=== PATIENT | female | born 1955 | race Caucasian/White ===

== ENCOUNTER 2025-01-22 12:32 | Outpatient (CLI) | payer MEDICARE, OTHER, SELFPAY ==
--- NOTE | ~2025-01-22 | US_ITS ---
LEFT LOWER EXTREMITY VENOUS ULTRASOUND Ordering provider: Lissa Dwyer MD History: . ACTIVIATED PROTEIN C RESISTANCE;LEFT LEG PAIN . Comparison: None. FINDINGS: --COMMON FEMORAL: Patent and free of thrombus. Normal compressibility, phasic flow and augmentation. --PROXIMAL SUPERFICIAL FEMORAL: Patent and free of thrombus. Normal compressibility, phasic flow and augmentation. --DISTAL SUPERFICIAL FEMORAL: Patent and free of thrombus. Normal compressibility, phasic flow and au gmentation. --POPLITEAL: Patent and free of thrombus. Normal compressibility, phasic flow and augmentation. --POSTERIOR TIBIAL: Patent and free of thrombus. Normal compressibility, phasic flow and augmentation . Thrombosis in the lesser saphenous vein is noted. IMPRESSION: Thrombosis in the lesser saphenous vein. No deep vein thrombosis. Reviewed, dictated and finalized at location A.
--- OUTSIDE RECORDS SUMMARY | 2025-01-22 12:42 | XMS_ITS | Clinical Summary ---
Author Organization [facility] Address [address] [place] [address] Care Team Providers Care Hammer Smith Name Role Phone Steve Vasques MD Primary Care Provider [phone] Allergies Active Allergy Reactions Criticality Noted Date Comments Hydrocodone-Acetaminophen Hives,Rash High 10/26/2019 Reaction: Rash, Hives, Medications GLUCOSAMINE HCL/CHONDRO WATT A (GLUCOSAMINE-CHO NDROITIN PO) Take 1 Tab by mouth daily. Active aspirin (LOLLY) 81 mg Oral Tab Take 81 mg by mouth daily. Active omega-3 fatty acids-fish oil 300-1,000 mg Capsule Take by mouth daily. Active ascorbic acid, vitamin C, (VITAMIN C) 500 mg tablet Take 500 mg by mouth daily. Active cholecalciferol, Vitamin D3, (VITAMIN D3) 25 mcg (1,000 unit) Capsule Take by mouth daily. Active Active Problems Problem Noted Date Diagnosed Date Thickened endometrium 08/14/2022 Other and unspecified ovarian cyst 10/10/2012 Arthralgia of shoulder 05/12/2011 Menopause 02/04/2011 FH: lymphoma 08/08/2009 Overview (08/08/2009): Mother 59 y/o Papanicolaou smear of cervix with low grade squamous intraepithelial lesion (LGSIL) 08/08/2009 Fibroid uterus 08/07/2009 Overview (08/07/2009): 10 weeks DVT (deep venous thrombosis) 08/07/2009 Knee pain 03/04/2009 Blood clot in the legs Overview (09/26/2009): Leg swelling. 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 Updating IMO/ICD9 Code and Description Resolved Problems Problem Noted Date Diagnosed Date Resolved Date Perimenopausal 08/07/2009 02/04/2011 Family History Medical History Relation Name Comments DVT Father Ray Other Father Ray blood clot issu es Unknown Maternal Grandfather Unknown Maternal Grandmother Cancer Mother Leah Lymphoma Healthy Other H-Roverto Unknown Paternal Grandfather DVT Paternal Grandmother Kathia Unknown Paternal Grandmother Kathia Other Sister Chery blood clot issu e Stroke Sister Chery Relation Name Status Comments Father Ray Maternal Grandfather Maternal Grandmother Mother Leah Other H-Roverto Alive Paternal Grandfather Paternal Grandmother Kathia Sister Chery Alive Social History Tobacco Use Types Packs/Day Years Used Date Smoking Tobacco: Never Smokeless Tobacco: Never Tobacco Cessation:Counseling Given: Not Answered Alcohol Use Standard Drinks/Week Comments Yes 3 (1 standard drink = 0.6 oz pur e alcohol) Comments No Sex and Gender Information Value Date Recorded Sex Assigned at Not on file Legal Sex Female 5:39 AM INDUCTION COORDINATION ENGINEER Gender Identity Not on file Sexual Orientation Not on file Occupation Industry Job Start Date Job End Date Not on file Not on file Not on file Not on file Last Filed Vital Signs Vital Sign Reading Time Taken Comments Blood Pressure 116/57 08/14/2022 11:38 AM INDUCTION COORDINATION ENGINEER Pulse 61 08/14/2022 11:38 AM INDUCTION COORDINATION ENGINEER Temperature 36.2 C (97.1 F) 08/14/2022 11:23 AM INDUCTION COORDINATION ENGINEER Respiratory Rate 16 08/14/2022 11:38 AM INDUCTION COORDINATION ENGINEER Oxygen Saturation 100% 08/14/2022 11:38 AM INDUCTION COORDINATION ENGINEER Inhaled Oxygen Concentration - - Weight 67.6 kg (149 lb) 08/25/2023 10:56 AM INDUCTION COORDINATION ENGINEER Height 160 cm (5' 3 ) 08/25/2023 10:56 AM INDUCTION COORDINATION ENGINEER Body Mass Index 26.39 08/25/2023 10:56 AM INDUCTION COORDINATION ENGINEER Plan of Treatment Health Maintenance Due Date Last Done Comments DTAP/TDAP/TD VACCINES (1 - Tdap) 1976 FIT-DNA Q 3 years 2002 FIT/FOBT Q 1 year 2002 Flex Sig/CT Colonography Q 5 years 2002 PNEUMOCOCCAL VACCINE 50+ YEA RS (1 of 1 - PCV) 2007 ZOSTER VACCINE (1 of 2) 2007 BREAST CANCER SCREENING 10/07/2023 10/07/19 23, 10/07/2022, 10/07/2022, Additional history exists INFLUENZA VACCINE (#1) 2024 OSTEOPOROSIS SCREENING 03/15/2026 4, 05/05/2021, 05/05/2021, Additional history exists COLORECTAL SCREENING 04/29/2027 04/29/2017, 09/17/2011 (Postponed) Colorectal Cancer Screening 04/29/2027 RSV VACCINE (60+ or ) (1 - 1-dose 75+ series) 2032 Procedures Procedure Name Priority Date/Time Associated Diagnosis Comments MAMMO 3D YOKO SCREEN BILAT W OR WO CAD Routine 07/19/2019 XR DEXA BONE DENSITY AXIAL 1 OR MORE SITES Routine 10/03/2013 Special screening for osteoporosis from Last 3 Months or Most Recently Relevant to Health Maintenance Results * MAMMO SCRN BILAT 3D YOKO W OR WO CAD (07/19/2019) Anatomical Region Laterality Modality Breast Bilateral Mammography Jimmy An MD MAMMO ORDERABLES Edited Resu lt - Final * XR DEXA BONE DENSITY AXIAL 1 OR MORE SITES (10/03/2013) Anatomical Region Laterality Modality Other Jimmy An MD DIAGNOSTIC IMAGING ORDERABLE S Final Result from Last 3 Months or Most Recently Relevant to Health Maintenance Insurance MEDICARE PART A AND [place] [facility] [place] [address] Advance Directives For more information, please contact: [phone] * Full Code (Latest Code Status on File) Date Activated Date Inactivated Comments 08/14/2022 10:38 AM 08/14/2022 2:48 PM * Full Code Date Activated Date Inactivated Comments 08/14/2022 9:08 AM 08/14/2022 10:37 AM * Full Code Date Activated Date Inactivated Comments 08/14/2022 9:08 AM 08/14/2022 9:08 AM Care Teams Hammer Smith Relationship Specialty Start Date End Date Steve Vasques MD [address] [place] [phone] PCP - General Family Practice 07/17/22
--- OUTSIDE RECORDS SUMMARY | 2025-01-22 12:42 | XMS_ITS | Clinical Summary ---
Author Organization [facility] Address [address] [place] [address] Care Team Providers Care Public Relations Player Name Role Phone Lissa Dwyer MD Primary Care Provider Family History Medical History Relation Comments Breast Cancer Neg Hx Social History Tobacco Use Types Packs/Day Years Used Date Smoking Tobacco: Never Assessed Comments Unknown Sex and Gender Information Value Date Recorded Sex Assigned at Not on file Legal Sex Female 7:49 PM CDT Gender Identity Not on file Sexual Orientation Not on file Plan of Treatment Health Maintenance Due Date Last Done Comments Colorectal Cancer Screening Colonoscopy (10 Years) 1955 Hepatitis C 1975 DTaP, Tdap and Td Vaccines (1 - Tdap) 1976 Pneumococcal Vaccine: 50+ Years (1 of 1 - PCV) 2007 Annual Medicare Wellness Visit 2022 COVID-19 Vaccine ( - season) 2024 Mammogram Screening 03/15/2026 03/15/2024, 10/07/2022, 10/02/2020, Additional history exists RSV Immunization or 60+ Years (1 - 1-dose 75+ series) 2032 Zoster Vaccines Completed 06/10/2020, 04/05/2020 Dexa Scan (General) Completed 03/15/2024, 05/05/2021, 05/05/2021, Additional history exists Meningococcal B Vaccine Aged Out No l onger eligible based on patient's age to complete this topic Meningococcal Vaccine Aged Out No kristie domiink eligible based on patient's age to complete this topic RSV Immunizations Under 20 Months Aged Out No longer eligible based on patient's age to complete this topic Procedures Procedure Name Priority Date/Time Associated Diagnosis Comments BONE DENSITY/DEXA Routine 03/15/2024 10: 41 AM CDT Asymptomatic menopausal state MG SCREENING W YOKO COLLETTE DIGI Routine 03/15/2024 10:41 AM CDT Screening mammogram, encounter for from Last 3 Months or Most Recently Relevant to Health Maintenance Results * BONE DENSITY/DEXA (03/15/2024 10:41 AM CDT) Anatomical Region Laterality Modality Bone Bone Density 03/15/2024 1:37 PM CDT Impressions 03/15/2024 1:40 PM CDT IMPRESSION: WHO Classification: Normal. The bone marrow density is at the lower limits of normal in the right and left femur. FRAX Score: Not calculated as all T-scores are at or above -1.0. Ordered By: ROHAN VASQUES Interpreted By: Javier Cole MD, 03/15/2024 1:37 PM Narrative 03/15/2024 1:40 PM CDT Examination: Bone Density Axial Exam Date/Time: 03/15/2024 10:16 AM Reason For Exam: Postmenopausal. Comparison: None Findings: DEXA bone densitometry The bone mineral density (BMD) was determined by dual-energy x-ray absorptiometry, the results are as follows: AP Lumbar Spine L1 through L4 BMD Patient (GM/SQCM): 1.005 T-Score (Standard deviations from young adult peak bone density): -0.4 Right femoral neck: BMD Patient (GM/SQCM): 0.740 T-Score (Standard deviations from young adult peak bone density): -1.0 Total right femur: BMD Patient (GM/SQCM): 0.886 T-Score (Standard deviations from young adult peak bone density): -0.5 Procedure Note Javier Cole MD - 03/15/2024 Examination: Bone Density Axial Exam Date/Time: 03/15/2024 10:16 AM Reason For Exam: Postmenopausal. Comparison: None Findings: DEXA bone densitometry The bone mineral density (BMD) was determined bydual-energy x-ray absorptiometry, the results are as follows: AP Lumbar Spine L1 through L4 BMD Patient (GM/SQCM): 1.005 T-Score (Standard deviations from young adult peak bonedensity): -0.4 Right femoral neck: BMD Patient (GM/SQCM): 0.740 T-Score (Standard deviations from young adult peak bonedensity): -1.0 Total right femur: BMD Patient (GM/SQCM): 0.886 T-Score (Standard deviations from young adult peak bonedensity): -0.5 IMPRESSION: WHO Classification: Normal. The bone marrow density is at the lower limitsof normal in the right and left femur. FRAX Score: Not calculated as all T-scores are at or above -1.0. Ordered By: ROHAN VASQUES Interpreted By: Javier Cole MD, 03/15/2024 1:37 PM us Rohan Vasques MD DEXA Final Result * MG SCREENING W YOKO COLLETTE DIGI (03/15/2024 10:41 AM CDT) Anatomical Region Laterality Modality Breast Bilateral Mammography 03/15/2024 2:13 PM CDT Impressions 03/15/2024 2:18 PM CDT =====IMPRESSION:===== No mammographic findings suggestive of malignancy ASSESSMENT: ACR BI-RADS 2 - BENIGN FINDING(S) Recommendation: 1: Routine Screening Bilateral COMMENTS: Ordered By: ROHAN VASQUES Interpreted By: Javier Cole MD, 03/15/2024 2:13 PM Narrative 03/15/2024 2:18 PM CDT EXAMINATION: Digital bilateral screening mammogram with 3-D tomosynthesis EXAM DATE/TIME: 03/15/2024 10:15 AM REASON FOR EXAM: Screening COMPARISON: Priors including October 2022, September 2020, July 2019. TECHNIQUE: Digital screening mammography of both breasts was performed in addition to 3-D Tomosynthesis technique. This study was read with the assistance of a computer-aided detection system. TISSUE DENSITY: There are scattered areas of fibroglandular density. FINDINGS: No suspicious masses, malignant appearing calcifications, skin thickening or other abnormalities are present. No significant change from the prior exam. Rohan Vasques MD MAMMO Final Result from Last 3 Months or Most Recently Relevant to Health Maintenance Insurance [facility] [id number] Care Teams Public Relations Player Relationship Specialty Start Date End Date Lissa Dwyer MD [address] [place] [address] PCP - General FAMILY PRACTICE 05/05/21
--- OUTSIDE RECORDS SUMMARY | 2025-01-22 12:42 | XMS_ITS | Encounter Summary ---
Author Organization [employer] Address [address] [place] [address] Care Team Providers Care Webbing Tacker Name Role Phone Steve Vasques MD Primary Care Provider [phone] Encounter Details Date Type Department Care Team (Latest Contact Info) Description 07/02/2008 Outpatient Historical [facility], [address] Jimmy An MD [address] [facility] [address] [place] [address] Routine Gynecological Examination Social History Tobacco Use Types Packs/Day Years Used Date Smoking Tobacco: Never Assessed Comments Unknown Sex and Gender Information Value Date Recorded Sex Assigned at Not on file Legal Sex Female 5:39 AM AMBULATORY SERVICES REPRESENTATIVE Gender Identity Not on file Sexual Orientation Not on file documented as of this encounter Plan of Treatment Not on file documented as of this encounter Procedures Procedure Name Priority Date/Time Associated Diagnosis Comments CERV/VAG CYTOPATH, SUREPATH Routine 07/02/2008 10:28 PM CDT documented in this encounter Results * CERVICAL OR VAGINAL CYTOPATH, SUREPATH (07/02/2008 10:28 PM CDT) SOURCE Cervix, Endocervix S [facility] LAST MENSTRUAL PERIOD 9 04 13 [facility] CYTOTECHNOLOGI ST: MAB, CT(ASCP) [facility] PAP INTERP ansi Negative for intraepithelial lesion or malignancy. [facility] PREV BX: ansi Information not provided [facility] CLINICAL INFORMATION Hx of LSIL or higher Pap/Bx [facility] REPORT STATUS FINAL [facility] ADEQUACY: Satisfactory for evaluation. Endocervical/trans formation zone component present. [facility] PREV PAP: Information not provided [facility] REVIEW CYTOTECHNOLOGI ST: JWS, CT(ASCP) [facility] Comment: Lab test performed by: [employer] [facility] [employer] [place] [address] GRACIA SAINI MD Specimen from uterine cervix (specimen) 07/02/2008 10:28 PM CDT 07/02/2008 10:55 PM CDT us Jimmy An MD PATHOLOGY/CYTOLOGY ORDERABLE S Final Result INTERFACE SYSTEM Refer to clinic/hospital department [facility] CLIA# [id number] [address] [facility] [place] [address] documented in this encounter Visit Diagnoses Diagnosis Routine gynecological examination documented in this encounter Care Teams Webbing Tacker Relationship Specialty Start Date End Date Steve Vasques MD [address] [place] [address] PCP - General Family Practice 07/17/22 documented as of this encounter
== END 2025-01-22 12:33 | disposition home or self-care (01) ==
PROVIDERS: PCP Family Medicine; Visit Provider Family Medicine
DX: D68.51 Activated protein C resistance (principal); M79.605 Pain in left leg; I82.812 Embolism and thrombosis of superficial veins of left lower extremity
CPT/HCPCS: 93971

== ENCOUNTER 2025-07-16 13:13 | Outpatient (CLI) | payer MEDICARE, OTHER, SELFPAY ==
--- NOTE | ~2025-07-16 | CT_ITS ---
EXAM: CT abdomen pelvis with contrast INDICATION: Lower abdominal pain COMPARISONS: None. PROCEDURE: 100 mL of Isovue 300 was injected IV. Enteric contrast given. Dose reduction technique(s) used. FINDINGS: Lower chest: Lung bases are clear. Body wall: No abnormality demonstrated. ABDOMEN: Liver: Normal size and homogeneous parenchyma. Gallbladder: No calcified gallstones. No bile duct dilatation. Spleen: Normal. Adrenals: Normal. Pancreas: No mass or adjacent stranding. Normal caliber duct. Kidneys: No calculus, mass or hydronephrosis. Aorta: Normal caliber. IVC: Normal. Retroperitoneum: No adenopathy. Stomach and visualized esophagus: No abnormality. PELVIS: Reproductive Organs: No pelvic mass. Bladder: No nodule or calculus. Colon: No focal wall thickening or paracolic fat stranding. Small Bowel: Some of the small bowel loops are inseparable from the uterus. There is what appears to be bowel wall thickening to the left of midline in some of the loops. There are scattered diverticula. There is inflammatory change in the fat about a loop of sigmoid colon. Appendix: Normal. Mesentery: No adenopathy. Normal splanchnic veins. Peritoneum: No free fluid or free air. Bones: No destructive lesion. IMPRESSION: The findings are consistent with diverticulitis without evidence of perforation or abscess formation. Reviewed, dictated and finalized at location A. ENSING AUDIOLOGIST
--- OUTSIDE RECORDS SUMMARY | 2025-07-16 13:30 | XMS_ITS | Clinical Summary ---
Author Organization [facility] Address [address] [place] [address] Care Team Providers Care Locomotive Pipe Fitter Name Role Phone Steve Vasques MD Primary Care Provider Allergies Active Allergy Reactions Criticality Noted Date [...] on file Legal Sex Female 5:39 AM HANDLE LATHE OPERATOR Gender Identity Not on file Sexual Orientation Not on file Occupation Industry Job Start Date Job End Date Not on file Not on file Not on file Not on file Last Filed Vital Signs Vital Sign Reading Time Taken Comments Blood Pressure 116/57 08/14/2022 11:38 AM HANDLE LATHE OPERATOR Pulse 61 08/14/2022 11:38 AM HANDLE LATHE OPERATOR Temperature 36.2 C (97.1 F) 08/14/2022 11:23 AM HANDLE LATHE OPERATOR Respiratory Rate 16 08/14/2022 11:38 AM HANDLE LATHE OPERATOR Oxygen Saturation 100% 08/14/2022 11:38 AM HANDLE LATHE OPERATOR Inhaled Oxygen Concentration - - Weight 67.6 kg (149 lb) 08/25/2023 10:56 AM HANDLE LATHE OPERATOR Height 160 cm (5' 3) 08/25/2023 10:56 AM HANDLE LATHE OPERATOR Body Mass Index 26.39 08/25/2023 10:56 AM HANDLE LATHE OPERATOR Plan of Treatment Upcoming Encounters Date Type Department Care Team (Late st Contact Info) Description 08/15/2025 9:30 AM HANDLE LATHE OPERATOR Ancillary Procedure [facility] [address] [address] 08/15/2025 10:15 AM HANDLE LATHE OPERATOR Office Visit [facility] [address] [address] Jimmy An MD [address] [facility] [address] [address] Health Maintenance Due Date Last Done Comments DTAP/TDAP/TD VACCINES (1 - Tdap) 1976 FIT-DNA Q 3 years 2002 FIT/FOBT Q 1 year 2002 Flex Sig/CT Colonography Q 5 years 2002 PNEUMOCOCCAL VACCINE 50+ YEA RS (1 of 1 - PCV) 2007 ZOSTER VACCINE (1 of 2) 2007 BREAST CANCER SCREENING 10/07/2023 10/07/19 23, 10/07/2022, 10/07/2022, Additional history exists INFLUENZA VACCINE (#1) 2025 OSTEOPOROSIS SCREENING 03/15/2026 , 05/05/2021, 05/05/2021, Additional history exists COLORECTAL SCREENING [...] Anatomical Region Laterality Modality Breast Bilateral Mammography us Jimmy An MD MAMMO ORDERABLES Edited Resu lt - Final * XR DEXA BONE DENSITY AXIAL 1 OR MORE SITES (10/03/2013) Anatomical Region Laterality Modality Other us Jimmy An MD DIAGNOSTIC IMAGING ORDERABLE S Final Result from Last 3 Months or Most Recently Relevant to Health Maintenance Insurance MEDICARE PART A AND B [facility] Advance Directives For more information, please contact: [phone] * Full Code (Latest Code Status on File) Date Activated Date Inactivated Comments 08/14/2022 10:38 AM 08/14/2022 2:48 PM * Full Code Date Activated Date Inactivated Comments 08/14/2022 9:08 AM 08/14/2022 10:37 AM * Full Code Date Activated Date Inactivated Comments 08/14/2022 9:08 AM 08/14/2022 9:08 AM Care Teams Locomotive Pipe Fitter Relationship Specialty Start Date End Date Steve Vasques MD [address] [place] [address] PCP - General Family Practice 07/17/22
--- OUTSIDE RECORDS SUMMARY | 2025-07-16 13:30 | XMS_ITS | Encounter Summary ---
Author Organization [facility] Address [address] [place] [address] Care Team Providers Care Nitrating Acid Mixer Name Role Phone Steve Vasques MD Primary Care Provider [phone] Encounter Details Date Type Department Care Team (Latest Contact Info) Description 07/02/2008 Outpatient Historical [facility], [address] Jimmy An MD [address] [address] Routine Gynecological Examination Social History Tobacco Use Types Packs/Day Years Used Date Smoking Tobacco: Never Assessed Comments Unknown Sex and Gender Information Value Date Recorded Sex Assigned at Not on file Legal Sex Female 5:39 AM FERMENTER HELPER Gender Identity Not on file Sexual Orientation Not on file documented as of this encounter Plan of Treatment Upcoming Encounters Date Type Department Care Team (Late st Contact Info) Description 08/15/2025 9:30 AM FERMENTER HELPER Ancillary Procedure [facility] [address] [address] 08/15/2025 10:15 AM FERMENTER HELPER Office Visit [facility] [address] [address] Jimmy An MD [address] [address] documented as of this encounter Procedures Procedure Name Priority Date/Time Associated Diagnosis Comments CERV/VAG CYTOPATH, SUREPATH Routine 07/02/2008 10:28 PM CDT documented in this encounter Results * CERVICAL OR VAGINAL CYTOPATH, SUREPATH (07/02/2008 10:28 PM CDT) SOURCE Cervix, Endocervix S [facility] LAST MENSTRUAL PERIOD 9 8 08 [facility] CYTOTECHNOLOGI ST: MAB, CT(ASCP) [facility] PAP INTERP ansi Negative for intraepithelial lesion or malignancy. [facility] PREV BX: ansi Information not provided [facility] CLINICAL INFORMATION Hx of LSIL or higher Pap/Bx [facility] REPORT STATUS FINAL [facility] ADEQUACY: Satisfactory for evaluation. Endocervical/trans formation zone component present. [facility] PREV PAP: Information not provided [facility] REVIEW CYTOTECHNOLOGI ST: JWS, CT(ASCP) [facility] Comment: Lab test performed by: [employer] [address] [address] GRACIA SAINI MD Specimen from uterine cervix (specimen) 07/02/2008 10:28 PM CDT 07/02/2008 10:55 PM CDT us Jimmy An MD PATHOLOGY/CYTOLOGY ORDERABLE S Final Result INTERFACE SYSTEM Refer to clinic/hospital department [facility] CLIA# [id number] [address] [place] [id number] documented in this encounter Visit Diagnoses Diagnosis Routine gynecological examination documented in this encounter Care Teams Nitrating Acid Mixer Relationship Specialty Start Date End Date Steve Vasques MD [address] [place] [address] PCP - General Family Practice 07/17/22 documented as of this encounter
[2025-07-16 13:33] LABS: Estimated Glomerular Filt Rate 55
== END 2025-07-16 13:14 | disposition home or self-care (01) ==
PROVIDERS: PCP Family Medicine; Visit Provider Nurse Practitioner Family
DX: R10.30 Lower abdominal pain, unspecified (principal); R14.0 Abdominal distension (gaseous); R19.4 Change in bowel habit; R14.3 Flatulence
CPT/HCPCS: 74177; Q9967

== ENCOUNTER 2025-08-21 01:47 | Day surgery (SDC) | payer MEDICARE, OTHER, SELFPAY ==
--- OUTSIDE RECORDS SUMMARY | 2024-06-23 02:45 | XMS_ITS ---
Author Organization [facility] dicine Address [address] [place] [address] Care Team Providers Care Box Covering Machine Operator Name Role Phone Dr. Lissa Dwyer Primary Care Provider [phone] Pasha Solis Unavailable [phone] Results Component Value Reference Range Notes AUDIT-C Reviewed date:06/23/2024 12:00:00 AM Interpretation: Performing Lab: Notes/Report: How many standard drinks con taining alcohol do you have on a typical day? 1 or 2 drinks How often do you have 6 or m ore drinks on 1 occasion Never How often do you have a drin k containing alcohol Monthly or less Total Score 1 Patient Health Questionnaire (PHQ9) Reviewed date:06/23/2024 12:00:00 AM Interpretation: Performing Lab: Notes/Report: Feeling bad about yourself o r that you are a failure or have let yourself or your family down 0 Feeling down, depressed, or hopeless 0 Feeling tired or having little energy 0 If you checked off any probl ems, how difficult Not difficult at all have these problems made it for you to do your work, take care of things at home, or get along with other people? 0 Little interest or pleasure in doing things 0 Moving or speaking so slowly that other people could have noticed or the opposite being so figety or restless that you have been moving around a lot more than usual 0 Poor appetite or overeating 0 Thoughts that you would be b rusty off , or of hurting yourself 0 Trouble concentrating on thi ngs, such as reading the newspaper or watching television 0 Trouble falling or staying a sleep, or sleeping too much 0 REASON FOR VISIT Traditional AWV- mailed paperwork 10-9m, wants flu shot as well Immunizations Vaccine Route Administration Date Status Comme nts Influenza, high dose seasonal IM Intramuscular 06/23/2024 Administered ,sourcename : N ew immunization record ,immstatus : Complete Tdap IM Intramuscular 06/23/2024 Administered ,sourc ename : New immunization record ,immstatus : Complete Vital Signs Temperature 96.9 degrees Fahrenheit 06/23/20 24 Blood pressure systolic 122 mm Hg 06/23/20 24 Blood pressure diastolic 78 mm Hg 024 Heart Rate 70 /min 06/23/2024 Height 63.00 in 06/23/2024 Weight 153.31 lbs 06/23/2024 BMI 27.15 kg/m2 06/23/2024 Oximetry 98 % 06/23/2024 Height-cm 160.02 cm 06/23/2024 Weight-kg 69.54 kg 06/23/2024 Encounters Encounter Location Date Provider Diagnosis [address] [address] 06/23/2024 Pasha Solis 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 ; Encounter for screening for malignant neoplasm of colon Z12.11 ; Pure hypercholesterolemia , unspecified E78.00 ; Body mass index (BMI) 27.0-27.9, adult Z68.27 and Encounter for general adult medical examination without abnormal findings Z00.00 Assessments Encounter Date Diagnosis (ICD Code) Assessment Notes Treatment Notes Treatment Clinical Notes Section Notes 06/23/2024 Activated protein C resistance (ICD-10 - D68.51) 06/23/2024 Encounter for screening for malignant neoplasm of colon (ICD-10 - Z12.11) 06/23/2024 Pure hypercholesterol emia, unspecified (ICD-10 - E78.00) 06/23/2024 Body mass index (BMI) 27.0-27.9, adult (ICD-10 - Z68.27) 06/23/2024 Encounter for general adult medical examination without abnormal findings (ICD-10 - Z00.00) Plan Of Treatment No Information Progress Notes * Rachel MCGUIREDOB:1 (70 yo F)Acc No.[id number]:06/23/2024 Progress Note Patient: R Rachel Colon Provider: MARY JANE Henning :1955 A ge:69 Y S ex:Female Date:06/23/2024 Phone: Address:[facility] , [place], [id number] Pcp:Dr. Lissa Dwyer Subjective: * Chief Complaints: * T raditional AWV- mailed paperwork 10-9m, wants flu shot as well Objective: * Vitals: B P: 122/78 mm Hg, HR: 70 /min, Temp: 96.9 F, Oxygen sat %: 98 %, Ht: 63.00 in, Wt: 153.31 lbs, Wt-k.54 kg, Ht-cm: 160.02 cm, BMI: 27.15 Index. Past Vitals:* 09/11/2022 BP: 134/82 mm Hg, HR: 68 /mi n, Oxygen sat %: 97 %, Wt: 148.50 lbs, Wt-k.36 kg Assessment: * Assessment: 1. 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 E ncounter for general adult medical examination without abnormal findings - Z00.00 S pecify :Src Diagnosis Name: Encounter for annual wellness visit (AWV) in Medicare patient 3 . E ncounter for screening for malignant neoplasm of colon - Z12.11 ? 4 . P ure hypercholesterolemia, unspecified - E78.00 S pecify :Src Diagnosis Name: Elevated LDL cholesterol level 5 . B wolf mass index (BMI) 27.0-27.9, adult - Z68.27 Plan: * Immunizations: Influenza, high dose seasonal : 0.5 (Route: Intramuscular) on Left Arm Tdap : 0.5 (Route: Intramuscular) on Left Arm * Labs: * L ab: Patient Health Questionnaire (PHQ9) Value Reference Range F eeling bad about yourself or that you are a failure or have let yourself or your family down 0 * F eeling down, depressed, or hopeless 0 * F eeling tired or having little energy 0 * I f you checked off any problems, how difficult Not difficult at all have these problems made it for you to do your work, take care of things at home, or get along with other people? 0 * L ittle interest or pleasure in doing things 0 * M oving or speaking so slowly that other people could have noticed or the opposite being so figety or restless that you have been moving around a lot more than usual 0 * P oor appetite or overeating 0 * T houghts that you would be better off , or of hurting yourself 0 * T rouble concentrating on things, such as reading the newspaper or watching television 0 * T rouble falling or staying asleep, or sleeping too much 0 ?Lab: AUDIT-C* Value Reference Range H ow many standard drinks containing alcohol do you have on a typical day? 1 or 2 drinks * H ow often do you have 6 or more drinks on 1 occasion Never * H ow often do you have a drink containing alcohol Monthly or less * T otal Score 1 * Electronic signature of Jerry Solis on 08/21/2025 at 01:52 AM DANCE MASTER Sign off status: Pending * Provider: MARY JANE Henning Date: 1 Generated for Avni quinones/Radu/Barry on: 10/22/2024 01:52 AM DANCE MASTER
--- OUTSIDE RECORDS SUMMARY | 2024-07-04 04:10 | XMS_ITS ---
Author Organization [facility] dicine Address [address] [place] [address] Care Team Providers Care Fabricator Industrial Furnace Name Role Phone Dr. Lissa Dwyer Primary Care Provider [phone] REASON FOR VISIT Shot clinic Immunizations Vaccine Route Administration Date Status Comme nts [employer] Covid-19 Vaccine 1st dose IM Intramuscular 07/04/2024 Administered ,sourcename : N ew immunization record ,immstatus : Complete Procedures Procedure Date Ordered Date Performed Result Body Sit e Colonoscopy 07/04/2024 03/23/2017 N/A Encounters Encounter Location Date Provider Diagnosis [address] [address] 07/04/2024 Dr. Lissa Dwyer Encounter for immunization Z23 Assessments Encounter Date Diagnosis (ICD Code) Assessment Notes Treatment Notes Treatment Clinical Notes Section Notes 07/04/2024 Encounter for immunization (ICD-10 - Z23) Plan Of Treatment No Information Progress Notes * Rachel SMALLDOB:1 (70 yo F)Acc No.[id number]:07/04/2024 Progress Note Patient: Rachel Hightower Provider: Luc Dwyer MD :1955 A ge:69 Y S ex:Female Date:07/04/2024 Phone: Address:[address] [place] [id number] Subjective: * Chief Complaints: * S hot clinic Objective: Past Vitals:* 09/11/2022 BP: 134/82 mm Hg, HR: 68 /mi n, Oxygen sat %: 97 %, Wt: 148.50 lbs, Wt-k.36 kg Assessment: * Assessment: 1. E ncounter for immunization - Z23 S pecify :Src Diagnosis Name: COVID-19 vaccine administered Plan: * Treatment: Value Reference Range C olonoscopy Internal hemrhoids, diverticulosis, repe at [address] Yoder * Immunizations: Double the Donation Covid-19 Vaccine 1st dose : 0.3 (Route: Intramuscular) * Electronic signature of Dr. Lissa Dwyer on 08/21/2025 at 01:51 AM MAPLE PRODUCTS MAKER Sign off status: Pending * Provider: Luc Dwyer MD Date: 1 Generated for Avni quinones/Radu/Barry on: 10/22/2024 01:51 AM MAPLE PRODUCTS MAKER
--- OUTSIDE RECORDS SUMMARY | 2024-08-05 03:00 | XMS_ITS ---
Author Organization [facility] dicine Address [address] [place] [address] Care Team Providers Care Analysis Director Name Role Phone Dr. Lissa Dwyer Primary Care Provider [phone] Migration, Provider Unavailable Unavailable REASON FOR VISIT EMR-Scott Encounters Encounter Location Date Provider Diagnosis [facility] [address] [place] [address] 08/05/2024 Provider Migration Plan Of Treatment Medication Medication Name Sig Start Date Stop Date Notes Macrobid 100 MG Capsule 1 Oral two times a day; Duration: 5 04/09/2021 04/13/2021 dexAMETHasone 6 MG Tablet 1 Oral every d ay; Duration: 1 12/13/2023 12/13/2023 Vitamin C 500 MG Tablet Chewable Oral; Duration: 0 11/01/2021 11/15/2023 ,discontinuere ason:D iscontinued Cephalexin 250 MG Capsule 1 Oral three times a day; Duration: 7 03/26/2021 04/01/2021 Azithromycin 250 MG Tablet Oral; Duration: 0 12/13/2023 Cipro 500 MG Tablet 1 Oral every day; Duration: 0 04/24/2021 11/15/2023 ,discontinuereason:D iscontinued B Complex sublingual; Duration: 0 11/01/2021 11/15/2023 ,discontinuereason:D iscontinued *Pick strength-form from [facility] for eRX* Progress Notes * Rachel SMALLDOB:1 (70 yo F)Acc No.[id number]:08/05/2024 Patient: Chevy Rachel CHUN :1955 A ge:69 Y S ex:Female Phone: Address:[facility] [facility] , [place], [address] * Refills Stop Cephalexin Capsule, 250 MG, Oral, 21, 1, three times a day, 7 Stop Macrobid Capsule, 100 MG, Oral, 10, 1, two times a day, 5 Stop B Complex, sublingual, 0 Stop Vitamin C Tablet Chewable, 500 MG, Oral, 0 Stop Cipro Tablet, 500 MG, Oral, 1, every day, 0 Stop Azithromycin Tablet, 250 MG, Oral, 6, 0 Stop dexAMETHasone Tablet, 6 MG, Oral, 1, 1, every day, 1 Subjective: * Chief Complaints: * E MR-Scott Objective: Past Vitals:* 09/11/2022 BP: 134/82 mm Hg, HR: 68 /mi n, Oxygen sat %: 97 %, Wt: 148.50 lbs, Wt-k.36 kg * * Date:
--- OUTSIDE RECORDS SUMMARY | 2024-08-06 03:00 | XMS_ITS ---
Author Organization [facility] Address [address] [place] [address] Care Team Providers Care Data Reporting Analyst Name Role Phone Dr. Lissa Dwyer Primary Care Provider [phone] Migration, Provider Unavailable Unavailable Allergies Allergen (clinical drug ingredient) Drug/Non Drug Allergy documented on EMR Reaction Allergy Type Onset Date Status hydrocodone HYDROcodone hives Drug Allergy 04/09/2021 Ac tive REASON FOR VISIT [facility] [place]ations Medication SIG (Take, Route, Frequency, Duration) Notes Start Date End Date Status Glucos Chond Cplx Advanced oral; Duration: 0 *Reorder from [facility] for eRx and Interaction Alerts* 03/26/2021 Active Social History Social History Additional Details Category Social Info Options Details Migrated Social History Migrated Social History Alcohol history:Currently drinks alcohol , Frequency of drinks:1-4 drinks per week , Employment:Currently employed ,notes : [employer] , Marital status: , Tobacco history:Never smoker Encounters Encounter Location Date Provider Diagnosis [facility] [address] [place] [address] 08/06/2024 Provider Migration Plan Of Treatment No Information Progress Notes * Rachel SMALLDOB:1 (70 yo F)Acc No.[id number]:08/06/2024 Patient: Rachel RAMEY :1955 A ge:69 Y S ex:Female Phone: Address:[address] [address] , [place], [address] Subjective: * Chief Complaints: * E MR-Scott * Surgical History: shoulder sugery ,notes : Right shoulder Arthroscopy ,notes : Meniscus and ACL repair bilateral knee * Social History: M igrated Social History: M igrated Social History: Alcohol history:Currently drinks alcohol,Frequency of drinks:1-4 drinks per week,Employment:Currently employed ,notes : [employer],Marital status:,Tobacco history:Never smoker. * Medications: T akingGlucos Chond Cplx Advanced oral , Notes to Pharmacist: *Reorder from [facility] for eRx and Interaction Alerts*Taking Glucos Chond Cplx Advanced oral , Notes to Pharmacist: *Reorder from [facility] for eRx and Interaction Alerts* * Allergies: H YDROcodone: hives - Allergy - Onset Date 04/09/2021 Objective: Past Vitals:* 09/11/2022 BP: 134/82 mm Hg, HR: 68 /mi n, Oxygen sat %: 97 %, Wt: 148.50 lbs, Wt-k.36 kg * * Date:
[2025-07-12 13:37] VITALS: BMI 25.7
[2025-08-01 13:39] VITALS: BMI 25.7
--- OUTSIDE RECORDS SUMMARY | 2025-08-21 01:52 | XMS_ITS | Clinical Summary ---
Author Organization [facility] Address [address] [place] [address] Care Team Providers Care Ultimate Hoops Scoreboard Operator Name Role Phone Steve Vasques MD Primary [...] Diagnosed Date Resolved Date Perimenopausal 08/07/2009 02/04/2011 Encounters Date Type Department Care Team Description 08/15/2025 10:15 AM LEAD ACCOUNTANT Office Visit [facility] [address] [address] Jimmy An MD Well woman exam with routine gynecological exam (Primary Dx); Visit for screening mammogram; Menopause 08/15/2025 9:30 AM LEAD ACCOUNTANT Ancillary Procedure [facility] [address] [phone] Fibroids from Last 3 Months Family History Medical History Relation Name Comments [...] on file Legal Sex Female 5:39 AM LEAD ACCOUNTANT Gender Identity Not on file Sexual Orientation Not on file Occupation Industry Job Start Date Job End Date Not on file Not on file Not on file Not on file Last Filed Vital Signs Vital Sign Reading Time Taken Comments Blood Pressure 122/70 08/15/2025 9:46 AM LEAD ACCOUNTANT Pulse 61 08/14/2022 11:38 AM LEAD ACCOUNTANT Temperature 36.2 C (97.1 F) 08/14/2022 11:23 AM LEAD ACCOUNTANT Respiratory Rate 16 08/14/2022 11:38 AM LEAD ACCOUNTANT Oxygen Saturation 100% 08/14/2022 11:38 AM LEAD ACCOUNTANT Inhaled Oxygen Concentration - - Weight 67.6 kg (149 lb) 08/15/2025 9:46 AM LEAD ACCOUNTANT Height 160 cm (5' 3) 08/15/2025 9:46 AM LEAD ACCOUNTANT Body Mass Index 26.39 08/15/2025 9:46 AM LEAD ACCOUNTANT Plan of Treatment Upcoming Encounters Date Type Department Care Team (Late st Contact Info) Description 08/21/2026 9:30 AM LEAD ACCOUNTANT Ancillary Procedure [address] [address] 08/21/2026 10:00 AM LEAD ACCOUNTANT Office Visit [facility] [address] [address] Jimmy An MD [address] [address] Health Maintenance Due Date Last Done Comments Pre-Diabetes and Diabetes Screening 1955 DTAP/TDAP/TD VACCINES (1 - Tdap) 1976 FIT-DNA Q 3 years 2002 FIT/FOBT Q 1 year 2002 Flex Sig/CT Colonography Q 5 years 2002 PNEUMOCOCCAL VACCINE 50+ YEA RS (1 of 1 - PCV) 2007 ZOSTER VACCINE (1 of 2) 2007 BREAST CANCER SCREENING 03/15/2025 03/15/20 24, 03/15/2024, 10/07/2022, Additional history exists INFLUENZA VACCINE (#1) 2025 OSTEOPOROSIS SCREENING 03/15/2026 4, 03/15/2024, 05/05/2021, Additional history exists COLORECTAL SCREENING 04/29/2027 04/29/2017, 09/17/2011 (Postponed) Colorectal Cancer Screening 04/29/2027 RSV VACCINE (60+ or ) (1 - 1-dose 75+ series) 2032 Procedures Procedure Name Priority Date/Time Associated Diagnosis Comments US PELVIC TRANSVAGINAL Routine 08/15/2025 9:41 AM LEAD ACCOUNTANT Fibroids MAMMO 3D YOKO SCREEN BILAT W OR WO CAD Routine 07/19/2019 XR DEXA BONE DENSITY AXIAL 1 OR MORE SITES Routine 10/03/2013 Special screening for osteoporosis from Last 3 Months or Most Recently Relevant to Health Maintenance Results * US PELVIC TRANSVAGINAL (08/15/2025 9:41 AM LEAD ACCOUNTANT) Anatomical Region Laterality Modality Pelvis Ultrasound 08/15/2025 9:21 AM LEAD ACCOUNTANT Narrative 08/17/2025 9:07 AM [facility] PELVIC ULTRASOUND ----- Pat. Name: RACHEL MILLER Study Date: 08/15/2025 9:21am Pat. NO: [id number] Referring MD: JIMMY AN MD Site: [address] Shoe Shanker: Yesy Patel RDMS : 1955 Age: 70 ----- INDICATION ----- Fibroids, unspecified CODING ----- Diagnoses D25.9: Fibroids, unspecified Procedures 19602: Ultrasound non OB transvaginal METHOD ----- FIBRE TECHNOLOGIST Transvaginal US Examination UTERUS ----- Long 49 mm x ap 22 mm x tr 34 mm. Vol 19.2 cm Position: anteverted Myometrium: heterogeneous with myomata present. contour is irregular Endometrium: normal. Endometrial thickness, total 2.2 mm Cervix details: unremarkable. Fibroid(s) 1. Size 31 mm x 30 mm x 33 mm. Mean 31.4 mm. Vol 16.229 cm . fundal 2. Size 14 mm x 15 mm x 14 mm. Mean 14.1 mm. Vol 1.466 cm . left lateral near cvx. Boarders not well visualized RIGHT OVARY ----- Suboptimally visualized due to bowel gas but appears normal in size, shape, structure and morphology. Outline: Smooth contours. Size 10 mm x 9 mm x 6 mm. Vol 0.3 cm LEFT OVARY ----- Suboptimally visualized due to bowel gas but appears normal in size, shape, structure and morphology. Outline: Smooth contours. Size 13 mm x 10 mm x 9 mm. Vol 0.6 cm CUL DE SAC ----- No free fluid is seen IMPRESSION ----- Uterus is anteverted. Endometrial stripe measures 2mm. There is a 3 cm fundal subserosal fibroid with posterior calcifications. There is a 1.5 cm anterior left lateral lower uterine segment/cervical fibroid. These are not significantly changed from prior US done 08/2023 Left ovary is suboptimally visualized however no gross abnormalities are seen. Right ovary sonographically normal in appearance. FOLLOW-UP ----- As clinically indicated Procedure Note Aracelis Erickson MD - 08/17/2025 [facility] PELVIC ULTRASOUND ----- Pat. Name:Kyle MILLER Date:08/15/2025 9:21am Pat. NO: [id number] MD:JIMMY AN MD Site:[place] [id number]:Yesy Patel RDMS :1955ge:[id number] ----- INDICATION ----- Fibroids, unspecified CODING ----- Diagnoses D25.9: Fibroids, unspecified Procedures 57938: Ultrasound non OB transvaginal METHOD ----- FIBRE TECHNOLOGIST Transvaginal US Examination UTERUS ----- Long 49 mm x ap 22 mm x tr 34 mm. Vol 19.2 cm Position: anteverted Myometrium: heterogeneous with myomata present. contour is irregular Endometrium: normal. Endometrial thickness, total 2.2 mm Cervix details: unremarkable. Fibroid(s) 1. Size 31 mm x 30 mm x 33 mm.Mean 31.4 mm. Vol 16.229 cm . fundal 2. Size 14 mm x 15 mm x 14 mm.Mean 14.1 mm. Vol 1.466 cm . left lateral near cvx. Boarders not wellvisualized RIGHT OVARY ----- Suboptimally visualized due to bowel gas but appears normal in size, shape, structure and morphology. Outline: Smooth contours. Size 10 mm x 9 mm x 6 mm. Vol 0.3 cm LEFT OVARY ----- Suboptimally visualized due to bowel gas but appears normal in size, shape, structure and morphology. Outline: Smooth contours. Size 13 mm x 10 mm x 9 mm. Vol 0.6 cm CUL DE SAC ----- No free fluid is seen IMPRESSION ----- Uterus is anteverted. Endometrial stripe measures 2mm. There is a 3 cm fundal subserosal fibroid with posterior calcifications.There is a 1.5 cm anterior left lateral lower uterine segment/cervical fibroid. These are not significantly changed from priorUS done 08/2023 Left ovary is suboptimally visualized however no gross abnormalities areseen. Right ovary sonographically normal in appearance. FOLLOW-UP ----- As clinically indicated Jimmy An MD US ORDERABLES Final Result * MAMMO SCRN BILAT 3D YOKO W [...] Maintenance Insurance MEDICARE PART A AND B [facility] [place] [address] Advance Directives For more information, please contact: [phone] * Full Code (Latest Code Status on File) Date Activated Date Inactivated Comments 08/14/2022 10:38 AM 08/14/2022 2:48 PM * Full Code Date Activated Date Inactivated Comments 08/14/2022 9:08 AM 08/14/2022 10:37 AM * Full Code Date Activated Date Inactivated Comments 08/14/2022 9:08 AM 08/14/2022 9:08 AM Care Teams Ultimate Hoops Scoreboard Operator Relationship Specialty Start Date End Date Steve Vasques MD [address] [place] [address] PCP - General Family Practice 07/17/22
--- OUTSIDE RECORDS SUMMARY | 2025-08-21 01:52 | XMS_ITS | Encounter Summary ---
Author Organization [facility] Address [address] [place] [address] Care Team Providers Care Urologic Surgeon Name Role Phone Steve Vasques MD Primary Care Provider [phone] Encounter Details Date Type Department Care Team (Latest Contact Info) Description 07/02/2008 Outpatient Historical [facility], [address] Jimmy An MD [address] [address] Routine Gynecological Examination Social History Tobacco Use Types Packs/Day Years Used Date Smoking Tobacco: Never Assessed Comments Unknown Sex and Gender Information Value Date Recorded Sex Assigned at Not on file Legal Sex Female 5:39 AM POKER DEALER Gender Identity Not on file Sexual Orientation Not on file documented as of this encounter Plan of Treatment Upcoming Encounters Date Type Department Care Team (Late st Contact Info) Description 08/21/2026 9:30 AM POKER DEALER Ancillary Procedure [place] [id number] [address] 08/21/2026 10:00 AM POKER DEALER Office Visit [facility] [address] [address] Jimmy An MD [address] [address] documented as of this encounter Procedures Procedure Name Priority Date/Time Associated Diagnosis Comments CERV/VAG CYTOPATH, SUREPATH Routine 07/02/2008 10:28 PM CDT documented in this encounter Results * CERVICAL OR VAGINAL CYTOPATH, SUREPATH (07/02/2008 10:28 PM CDT) SOURCE Cervix, Endocervix S [facility] LAST MENSTRUAL PERIOD 9 8 08 [facility] CYTOTECHNOLOGI ST: MAB, CT(ASCP) [facility] PAP INTERP ansi Negative for intraepithelial lesion or malignancy. [facility] PREV BX: ansi Information not provided [facility] CLINICAL INFORMATION Hx of LSIL or higher Pap/Bx [facility] REPORT STATUS FINAL [facility] ADEQUACY: Satisfactory for evaluation. Endocervical/trans formation zone component present. [facility] PREV PAP: Information not provided [facility] REVIEW CYTOTECHNOLOGI ST: JWS, CT(ASCP) [facility] Comment: Lab test performed by: [employer] [address] [address] GRACIA SAINI MD Specimen from uterine cervix (specimen) 07/02/2008 10:28 PM CDT 07/02/2008 10:55 PM CDT Jimmy An MD PATHOLOGY/CYTOLOGY ORDERABLE S Final Result INTERFACE SYSTEM Refer to clinic/hospital department [facility] CLIA# [id number] [address] [facility] [place] [address] documented in this encounter Visit Diagnoses Diagnosis Routine gynecological examination documented in this encounter Care Teams Urologic Surgeon Relationship Specialty Start Date End Date Steve Vasques MD [address] [place] [address] PCP - General Family Practice 07/17/22 documented as of this encounter
--- OUTSIDE RECORDS SUMMARY | 2025-08-21 01:52 | XMS_ITS | Patient Health Record ---
Author Organization Formerly [facility], 1928–1983 dicine Address [address] [place] [address] Care Team Providers Care Stove Polisher Name Role Phone Dr. Lissa Dwyer Primary Care Provider [phone] Qiana Pretty Unavailable [phone] Lissa Porras Unavailable [phone] Migration, Provider Unavailable Unavailable Dr. Agusto Sorensen Unavailable [phone] Allergies Allergen (clinical drug ingredient) Drug/Non Drug Allergy documented on EMR Reaction Allergy Type Onset Date Status hydrocodone HYDROcodone hives Drug Allergy 04/09/2021 Ac tive Results Component Value Reference Range Notes XR ABD FLAT+UPRIGHT Reviewed date:06/27/2025 04:38:36 PM Interpretation: Performing Lab: Notes/Report: [address] [place] [id number] Two VIEW(s) OF THE ABDOMEN History: Abdomen pain and constipation Comparison:None Supine and upright views of the abdomen demonstrate a normal overall bowel gas pattern. Moderate stool is noted throughout the colon suggesting mild constipation. No pathologic intra-abdominal calcifications are seen. The bony elements appear intact IMPRESSION: Mild constipation Ordered By: AGUSTO SORENSEN Interpreted By: Rex Balbuena MD, 06/27/2025 11:[address] Abdomen and Pelvis with a nd without contrast ([id number]) Reviewed date:07/18/2025 03:38:52 PM Interpretation: Performing Lab: Notes/Report: Ultrasound : Doppler : Veins Leg Left Reviewed date:01/22/2025 02:07:32 PM Interpretation: Performing Lab: Notes/Report: Reason For Referral Reason Unsure when due for next colonoscopy, requesting [place]. Diagnosis 1 Abnormal stools (R19 .5) Referral Organization [facility] Referring Provider First Name Qiana Referring Provider Last Name Maria De Jesus Referring Provider Speciality Nurse Prac ivis Referred Provider Specialty Gastroentero logy General Notes Tavia Leigh 1 09/08/2024 01:56:55 PM ACTIVITIES SPECIALIST >Referral faxed to [facility] [phone] Referral Priority Routine Reason recurrent diverticul itis, abd pain, blood in stool. [facility]. Diagnosis 1 Unspecified abdomina l pain (R10.9) Referral Organization [facility] Referring Provider First Name Lissa Referring Provider Last Name Chiquita Referring Provider Speciality Nurse Prac ozzyr Referred Provider Specialty Gastroentero logy General Notes Tavia Leigh 1 10/10/2024 04:25:12 PM ACTIVITIES SPECIALIST >Referral faxed to [facility] [phone] Referral Priority Urgent Medications Medication SIG (Take, Route, Frequency, Duration) Notes Start Date End Date Status Womens 50+ Multi Vitamin - Tablet as directed Orally Activ e Glucos Chond Cplx Advanced oral; Duration: 0 *Reorder from dotSyntaxCoupay for eRx and Interaction Alerts* 03/26/2021 Active Vitamin D 50 MCG (1999 [place]) Tablet 1 tablet Orally Once a day Active Aspirin 81 Active Vitamin B 12 500 MCG Tablet 1 tablet Orally Once a day Active Immunizations Vaccine Route Administration Date Status Comme nts Influenza, high dose seasonal IM Intramuscular 06/23/2024 Administered ,sourcename : N ew immunization record ,immstatus : Complete Influenza, seasonal, injectable, preservative free, 3 yrs and above Unknown 06/10/2021 Administered Alma Leon ,sourcename : Historical information -from other provider Source [facility] Code: : Pfizer-Biontech Covid-19 Vaccine 1st dose IM Intramuscular 07/04/2024 Administered ,sourcename : N ew immunization record ,immstatus : Complete Tdap IM Intramuscular 06/23/2024 Administered ,[facility] ename : New immunization record ,immstatus : Complete Social History Tobacco Use: Social History Observation Description Date Details (start date - stop date) Never Smoker NA - NA Social History Household: Social Info Question Answer Notes Household Marital status: Drug/Alcohol: Social Info Question Answer Notes AUDIT-C (Standard) Did you have a drink containing alcohol in the past year? Yes How often did you have a drink containing alcohol in the past year? Monthly or less (1 point) How many drinks did you have on a typical day when you were drinking in the past year? 1 or 2 drinks (0 point) How often did you have six or more drinks on one occasion in the past year? Never (0 point) Points 1 Interpretation Negative Tobacco Use: Social Info Question Answer Notes Tobacco Control (Standard) Tobacco use: Nonsmoker Additional Details Category Social Info Options Details Miscellaneous: Occupation: works full-ti [employer] Problems Problem Type SNOMED Code ICD Code Onset Dates Problem Status W/U Status Risk Notes Problem Diverticulitis of colon (923210625) Recurrent diverticulitis (K57.92) Active confirmed Problem Body mass index 25-2 9 - overweight (487606818) Body mass index (BMI) 27.0-27.9, adult (Z68.27) Active confirmed Problem Pure hypercholesterolemia (038811174) Pure hypercholesterol emia, unspecified (E78.00) 023 Active confirmed Problem Postmenopausal state (42023353) Asymptomatic menopausal state (Z78.0) 021 Active confirmed Problem Vaccination given (951673470) Encounter for immunization (Z23) Active confirmed Problem Periumbilical pain (576516265) Periumbilical pain (R10.33) 023 Active confirmed Problem Cervicalgia (09060367) Cervicalg ia (M54.2) 022 Active confirmed Problem Melena (0602193) Melena (K92.1) 023 Active confirmed Problem Anxiety disorder (979837062) Anxiety disorder, unspecified (F41.9) 021 Active confirmed Problem 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 Active confirmed Problem Acute constipation (846174796) Acute constipation (K59.00) Active confirmed Problem Allergic rhinitis (20913454) Chronic allergic rhinitis (J30.9) Active confirmed Problem Screening for malignant neoplasm of colon (285091673) Encounter for screening for malignant neoplasm of colon (Z12.11) 024 Active confirmed Vital Signs Heart Rate 92 /min 07/16/2025 Temperature 97.3 degrees Fahrenheit 07/16/2025 Respiratory Rate 16 /min 06/27/2025 Height-cm 160.02 cm 07/16/2025 Oximetry 96 % 07/16/2025 Blood pressure diastolic 68 mm Hg 07/16/2025 Weight-kg 67.5 kg 07/16/2025 Height 63.00 in 07/16/2025 Blood pressure systolic 110 mm Hg 07/16/2025 Weight 148.8 lbs 07/16/2025 BMI 26.36 kg/m2 07/16/2025 Encounters Encounter Location Date Provider Diagnosis [address] [address] 01/22/2025 Dr. Lissa Dwyer 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 ; Left leg pain M79.605 ; Thrombophlebitis of superficial veins of left lower extremity I80.02 and Acute allergic rhinitis J30.[address] [address] 02/05/2025 Dr. Lissa Dwyer Superficial vein thrombosis I82.890 ; 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 and Chronic allergic rhinitis J30.[address] [address] 06/27/2025 Dr. Agusto Sorensen Abdominal bloating R14.[address] [address] 07/09/2025 Qiana Pretty Abnormal stools R19. 5 ; Abdominal bloating R14.0 ; Uterine leiomyoma, unspecified location D25.9 and Upper respiratory virus J06.[address] [address] 07/16/2025 Lissa Porras Lower abdominal pain R10.30 ; Abdominal bloating R14.0 ; Excessive flatus R14.3 and Change in bowel habits R19.[address] [address] 09/29/2024 Dr. Lissa Dwyer [address] [address] 06/27/2025 Dr. Agusto Sorensen [address] [address] 07/16/2025 Lissa Porras [facility] [address] [place] [address] 07/16/2025 Lissa Porras [facility] [address] [place] [address] 06/28/2025 Dr. Lissa Dwyer [facility] [address] [place] [address] 07/11/2025 [facility] [address] [place] [address] 07/12/2025 [facility] [address] [place] [address] 07/16/2025 Dr. Lissa Dwyer [address] [address] 07/16/2025 Dr. Alcaraz [address] [address] 07/17/2025 Lissa Porras [address] [address] 07/17/2025 Dr. Lissa Dwyer [address] [address] 07/18/2025 Lissa Porras [address] [address] 07/19/2025 Dr. Alcaraz [address] [address] 08/07/2025 Lissa Porras Assessments Encounter Date Diagnosis (ICD Code) Assessment Notes Treatment Notes Treatment Clinical Notes Section Notes 01/22/2025 Activated protein C resistance (ICD-10 - D68.51) 01/22/2025 Left leg pain (ICD-10 - M79.605) 02/05/2025 Activated protein C resistance (ICD-10 - D68.51) 07/09/2025 Abdominal bloating (ICD-10 - R14.0) Lower abdominal pain, bloating, altered bowel movements:-Persist with Miralax and Colace. -Will get set up for colonoscopy, if it is going to be a while before she gets in with GI then will get CT abd/pelvis - Recommend starting a probiotic, such as yogurt or Culturelle, and gradually adding back dietary fiber. 07/09/2025 Abnormal stools (ICD-10 - R19.5) -Stools are are smaller and in small pieces and feeling bloated. This is a significant change for her over the past month. Will get set up for colonoscopy 07/16/2025 Lower abdominal pain (ICD-10 - R10.30) 07/16/2025 Abdominal bloating (ICD-10 - R14.0) 02/05/2025 Superficial vein thrombosis (ICD-10 - I82.890) 06/27/2025 Abdominal bloating (ICD-10 - R14.0) Lower abdominal pain, bloating, altered bowel movements:- Differential diagnosis includes irritable bowel syndrome, constipation with possible paradoxical diarrhea, and diverticulitis. Diverticulitis considered less likely due to intermittent, mild symptoms. No systemic symptoms of fever, chills. Irritable bowel syndrome considered due to history of similar cyclical symptoms and presence of ribbon stools.- Ordered KUB abdominal x-ray to assess stool load and rule out obstruction or significant constipation. If KUB shows no large stool load, recommendation to start qror-tpf-jrnkbmm Imodium once daily before first meal, with option to increase to twice daily if needed. If KUB shows large stool load, will provide instructions for laxative therapy. Will call with results and further recommendations. - Discussed potential clear liquid/low fiber diet for possible diverticulitis. Patient notes that if that's the case she will wait until this weekend to start it because there is a libertarian she wants to go to and eat there. Bloating and gas:- Bloating and gas attributed to dietary factors and possible irritable bowel syndrome.- Recommended glqn-jmx-vqyutlt Gas-X for symptomatic relief of bloating and cramping sensations. Advised that soda may increase bloating but is not harmful. 07/09/2025 Uterine leiomyoma, unspecified location (ICD-10 - D25.9) -Patient states that she has a large fibroid that gynecology has been monitoring with ultrasounds. Discussed the possibility of this growing causing her GI sx's She is going to contact her gynecolgist to get scheduled. 07/16/2025 Excessive flatus (ICD-10 - R14.3) 02/05/2025 Chronic allergic rhinitis (ICD-10 - J30.9) 01/22/2025 Thrombophlebitis of superficial veins of left lower extremity (ICD-10 - I80.02) 07/16/2025 Change in bowel habits (ICD-10 - R19.4) 07/09/2025 Upper respiratory virus (ICD-10 - J06.9) -Day 4 of URI, will have her continue to manage symptoms with OTC medication. If sx's persist over the next 3-5 days will call in an antibiotic. 01/22/2025 Acute allergic rhinitis (ICD-10 - J30.9) use antihistamines and nasal spray as directed. 01/22/2025 Other Cough and Allergies - Cough and sore throat likely due to allergies, as indicated by pale and swollen nasal passages and drainage causing throat rawness. No history of asthma. Allergies are the prime culprit. - Recommend ynfd-pry-kbzolod antihistamines like Claritin or Zyrtec. Suggest nasal steroid spray such as Flonase or Nasacort, one spray per nostril twice daily. Monitor symptoms and consider further evaluation if cough persists despite treatment. - Advise wearing a mask, such as an N95, when exposed to allergens like grass to reduce symptoms. Suspected Blood Clot in Left Calf - History of blood clots and Factor V Leiden genetic disorder increases risk. Painful lump on left medial calf raises suspicion of thrombophlebitis or deep vein thrombosis (DVT). Long car ride may have contributed to risk. - Order stat ultrasound of left leg to assess for clot. If superficial thrombophlebitis, consider aspirin or ibuprofen and heating pads. If DVT, initiate blood thinner treatment, possibly Eliquis, for 3 months. Follow-up in a week or two to monitor progress. - Risks and side effects: Discussed potential for clot to travel to lungs if DVT is present, but current vitals do not suggest pulmonary embolism. If on blood thinners, normal activities can be resumed with precautions like wearing a helmet during biking. - If the ultrasound confirms a clot, medication will be called in, and follow-up will be arranged to ensure improvement. _update day end: superficial thrombophlebitis is noted, No DVT. 02/05/2025 Other Superficial Blood Clot - Improvement noted in the superficial blood clot. No current concern for deep vein involvement. Family history of blood clots and personal history of Factor V Leiden, increasing risk for clots. - Continue baby aspirin. Monitor for any changes or recurrence. Recheck ultrasound if concerns arise. Consider long-term blood thinner if deep clots occur in the future. Use full-length compression stockings during long trips to prevent issues. Factor V Leiden - Confirmed heterozygous Factor V Leiden mutation, increasing clot risk. - Track down previous lab results for confirmation. Consider aspirin and lifestyle modifications (staying active, wearing compression stockings during long periods of immobility) as preventive measures. Discuss potential need for lifelong blood thinners if future deep clots occur. Allergies and Sinus Issues - Symptoms suggestive of allergies, possibly exacerbated by environmental factors. - Use Claritin and Flonase as needed for symptom relief. Consider Pepcid for potential silent acid reflux if symptoms persist. Annual Check-up - Last blood test in October 2023. - Schedule a check-up and blood test in the fall. Consider combining with a Medicare wellness visit to meet preventive care requirements. Pt agreed and will call later in the fall. 07/16/2025 Other - Ongoing abdominal pain, bloating, and altered bowel habits. - Differential diagnosis includes small intestinal bacterial overgrowth (SIBO), infection, or other gastrointestinal pathology. Further evaluation required to determine etiology.- Ordered stat CT scan of abdomen and pelvis with IV contrats and without contrast to evaluate for gastrointestinal and gynecological pathology. - Colonoscopy scheduled for July 19, 2025, at [facility] with [facility] for further evaluation, including possible tissue sampling/biopsy if indicated.- Recommended trial of cmzx-psh-dhvwcto Pepcid (famotidine) 10 mg once daily for symptomatic relief of gas and acid reduction.- Advised bland diet and increased water intake, avoidance of caffeine and excess sugar. - Will send clinical notes to GI specialist prior to colonoscopy. - Depending on CT and colonoscopy results, may need stool studies and labs done. Patient wanting to hold off on labs/stool studies for now until other imaging is resulted. Plan Of Treatment No Information Insurance Providers Payer Name Payer Address Payer Phone Subscriber Number Group Number Insured Name Patient Relationship to Insured Coverage Start Date Coverage End Date [employer] RHC [address] [place] [phone] [id number] Fabio medelRachel Barber Self - patient is the insured [address] [place] [address] [id number] Rachel Abrams Self - patient is the insured 3 [employer] Medicare B [address] [place] [address] [id number] Rachel Abrams Self - patient is the insured 3 Medical (General) History Medical History History ICD Code Body mass index (BMI) 27.0-27.9, adult Z 68.27 Pure hypercholesterolemia, unspecified E 78.00 Asymptomatic menopausal state Z78.0 Encounter for immunization Z23 Encounter for screening for malignant ne oplasm of colon Z12.11 Periumbilical pain R10.33 Cervicalgia M54.2 Melena K92.1 Anxiety disorder, unspecified F41.9 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 Surgical History Surgery Date(Month/Year) shoulder sugmarly ,notes : Right shoulder Arthroscopy ,notes : Meniscus and ACL re pair bilateral knee x3
[2025-08-21 08:45] VITALS: BP 123/76; PULSE 83; RESP 20; TEMP 36.3; O2SAT 99; BMI 25.4
[2025-08-21] MEDS: LACTATED RINGERS 1,000 ML 150 ML IV CONT (09:09)
--- NOTE | 2025-08-21 09:30 | PM.HPGS ---
History of Present Illness History of Present Illness Consent: Risks, benefits, and alternatives have been discussed and questions answered. Patient agrees to proceed with procedure. Chief complaint: Abnormal Stool Narrative: Rachel Barber is a 70 year old female with almost 3 months of change bowel habits after having diverticulitis, bloating and intermittent abdominal discomfort, last colonoscopy 9 years ago Review of Systems Review of Systems: All systems reviewed & are unremarkable except as noted in HPI and below PMFSH Past Medical History Medical History (Updated 08/21/25 @ 09:30 by Jerald Clemente MD) Bloating Abdominal pain Social History Social History Smoking status: Never smoker Alcohol intake: never Substance use: never Substance use type: does not use Living arrangements: alone Spiritual care concerns: No Meds Home Medications and Allergies Home Medications ?Medication ?Instructions ?Recorded ?Confirmed ?Type ascorbic acid (vitamin C) 500 mg 250 mg PO DAILY 07/12/25 08/21/25 History tablet (Vitamin C) aspirin 81 mg tablet,delayed 81 mg PO DAILY 07/12/25 08/21/25 History release (Adult Low Dose Aspirin) glucosamine sulfate 500 mg tablet 500 mg PO DAILY 07/12/25 08/21/25 History kfllrefq-kbj-dokqd 240 mcg-vit K1 1 tablet PO DAILY 07/12/25 08/21/25 History 120 mcg-lutein 300 mcg-herbs tablet (Alive Women's 50 Plus Complete) vitamin B complex 1 tablet PO DAILY 07/12/25 08/21/25 History Allergies Allergy/AdvReac Type Severity Reaction Status Date / Time hydrocodone Allergy Unknown Hives Verified 08/21/25 08:44 Vital Signs Vital Signs - 24 hr 08/21/25 08:45 Temperature 97.4 F L Pulse Rate 83 Respiratory Rate 20 Blood Pressure 123/76 Pulse Oximetry 99 Oxygen Delivery Room Air Exam Const: General: comfortable and no acute distress HENMT: Face/Nose/Sinus: Normal nares present Eyes: General: appearance normal, both eyes and all related structures Neck: Neck: no JVD Resp: Auscultation: clear to auscultation bilaterally Cardio: Rate: regular rate Rhythm: regular rhythm GI: Inspection: non-distended GI Palp: Yes Soft to palpation Skin: General skin exam: normal color Psych: Mental Status: mental status grossly normal Assessment and Plan Assessment and plan (1) Abdominal pain: Code(s): R10.9 - Unspecified abdominal pain Status: Acute Assessment and Plan: colonoscopy (2) Bloating: Code(s): R14.0 - Abdominal distension (gaseous) Status: Acute
--- NOTE | 2025-08-21 09:39 | WPDANESEPPF ---
Anes - Initial Pre Proc Eval Procedure: Operation Date: 08/21/25 10:00 Proposed Procedures p Screening Colonoscopy - Jerald Clemente MD Date/Time: 08/21/25 09:39 Surgeon: Jerald Clemente MD Pre Op Diagnosis: Abnormal Stool Patient Data Age: 70 Gender: F Height: 1.6 m Weight: 65.3 kg Last Vital Signs Temp 97.4 F L 08/21/25 08:45 Pulse 83 08/21/25 08:45 Resp 20 08/21/25 08:45 BP 123/76 08/21/25 08:45 Pulse Ox 99 08/21/25 08:45 O2 Del Method Room Air 08/21/25 08:45 Allergies Allergy/AdvReac Type Severity Reaction Status Date / Time hydrocodone Allergy Unknown Hives Verified 08/21/25 08:44 Home Medications ?Medication ?Instructions ?Recorded ?Confirmed ?Type ascorbic acid (vitamin C) 500 mg 250 mg PO DAILY 07/12/25 08/21/25 History tablet (Vitamin C) aspirin 81 mg tablet,delayed 81 mg PO DAILY 07/12/25 08/21/25 History release (Adult Low Dose Aspirin) glucosamine sulfate 500 mg tablet 500 mg PO DAILY 07/12/25 08/21/25 History zkrpryjn-rli-feriw 240 mcg-vit K1 1 tablet PO DAILY 07/12/25 08/21/25 History 120 mcg-lutein 300 mcg-herbs tablet (Alive Women's 50 Plus Complete) vitamin B complex 1 tablet PO DAILY 07/12/25 08/21/25 History Patient hx anesthesia problems: none Family hx anesthesia problems: none Results Review: All pre-operative results and documents have been reviewed as part of the pre-operative evaluation. [facility] Past Medical History Medical History Bloating Abdominal pain Social History Social History Smoking status: Never smoker Alcohol intake: never Substance use: never Substance use type: does not use Living arrangements: alone Spiritual care concerns: No Anes - Eval Final PreProcedure Day of Procedure 08/21/25 09:39 Patient weight: normal Lungs: normal air movement Airway: Mallampati scale class II Neurological: alert and oriented Last oral intake: >/= 8 hours ASA classification: I Emergent: no Anesthetic plan: proceed Anesthesia type and monitoring: general GIVS and standard monitoring Results Review: All pre-operative results and documents have been reviewed as part of the pre-operative evaluation. Pt very active w skydiving, workouts, chopping wood, no cp or sob. Informed Consent: The patient's anesthetic plan and its attendant risks and benefits were discussed with the patient/family/POA. Questions were solicited and answers provided to the satisfaction of the patient/family/POA.
--- NOTE | 2025-08-21 09:48 | S_PTH ---
PATIENT: Rachel Romero LOC: [facility]#:[id number] AGE/SX: 70/F ROOM: RE08/21/[address]: Jerald Clemente MD : 1955 BED: DIS: 08/21/2025 SPEC #: [id number] RECD: 08/21/25 10:09 STATUS: NIKITA PEREA #: [id number] JAMIE: 08/21/25 09:[address]: Jerald Clemente DEPT: [facility] Surgical RECD BY: Maicol Arndt ENTERED: 08/21/25 10:09 SP TYPE: Surgical OTHR DR: Lissa Dwyer MD Tissues: A - Colon Biopsy Procedures: Hematoxylin and Eosin Stain Gross and Microscopic Level 4
[2025-08-21 09:56] VITALS: BP 91/43; PULSE 75; RESP 21; O2SAT 98
[2025-08-21 10:06] VITALS: BP 89/40; PULSE 73; RESP 22; O2SAT 100
[2025-08-21 10:16] VITALS: BP 117/65; PULSE 70; RESP 24; O2SAT 100
== END 2025-08-21 10:31 | disposition home or self-care (01) ==
PROVIDERS: PCP Family Medicine; Visit Provider Internal Medicine Gastroenterology
PROC: 0DJD8ZZ Inspection of Lower Intestinal Tract, Via Natural or Artificial Opening Endoscopic (ICD-10-PCS; CPT 45378; principal; 2025-08-21 10:00)
DX: K57.30 Diverticulosis of large intestine without perforation or abscess without bleeding (principal); K64.8 Other hemorrhoids; Z87.19 Personal history of other diseases of the digestive system
CPT/HCPCS: 45380; 88305; J2003; J2704; J7120